=== PATIENT | female | born 1985 | race Caucasian/White ===

== ENCOUNTER 2022-08-24 09:40 | Emergency (ER) | payer BC ==
[~2022-08-24] VITALS: Ht 160 cm; Wt 142.0 kg
[2022-08-24] VITALS (11 sets, daily range): BP systolic 105–146; BP diastolic 68–103
[~2022-08-24 09:40] MED LIST: NO
[2022-08-24] MEDS ORDERED: LEXAPRO5 MG PO (10:04)
[2022-08-24] MEDS ORDERED: K-TABS10 MEQ PO (10:06)
[2022-08-24 10:13] LABS: BASO% 0.3 % (0-3); EOS% 0.9 % (0-8); HEMATOCRIT 38.2 % (37.0-47.0); IMMATURE GRANULOCYTES 0.3 % (0.0-5.0); LYMPH% 14.4 % (15-41); MEAN CELL VOLUME 80.3 fL CALC (80.0-100.0); MEAN CORPUSCULAR HGB 25.2 pG CALC (26.0-32.0); MEAN CORPUSCULAR HGB CONC 31.4 g/dL CAL (32.0-36.0); MONO% 6.5 % (2-13); NEUT# 5.87 thou/uL (2.00-7.15); NEUT% 77.6 % (42-76); RED BLOOD COUNT 4.76 mill/uL (4.20-5.60); RED CELL DISTRI WIDTH 14.3 % (11.5-15.5)
[2022-08-24 10:21] LABS: ALBUMIN 4.7 g/dL (3.2-5.0); ALKALINE PHOSPHATASE 127 u/l (38-126); ANION GAP 13 (6-22 (CALC)); BILIRUBIN, TOTAL 0.4 mg/dL (0.02-1.3); BUN 9 mg/dL (7-17); BUN/CREATININE RATIO 19 (12-20 (CALC)); CARBON DIOXIDE 24 mmol/l (22-30); CHLORIDE 103 mmol/l (95-108); CREATININE 0.5 mg/dL (0.5-1.0); GFR FOR AFR.AMER. > 60 ML/MIN (>=60 (CALC)); GFR OTHER RACES > 60 ML/MIN (>=60 (CALC)); POTASSIUM 3.4 mmol/l (3.5-5.1); SGOT/AST 31 u/l (14-36); SODIUM 136 mmol/l (137-146)
[2022-08-24] MEDS ORDERED: METOPROL TAR25 M1 PO (14:08)
== END 2022-08-24 15:04 | disposition home or self-care (01) | DRG 310 ==
LOC: ED 09:40
PROVIDERS: Family Medicine
DX: I48.92 Unspecified atrial flutter (principal)
CPT/HCPCS: J2060

== ENCOUNTER 2024-04-13 01:37 | Emergency (ER) | payer BC ==
[~2024-04-13] VITALS: Ht 160 cm; Wt 74.8 kg
[~2024-04-13 01:37] MED LIST changes: +K-TABS10 MEQ PO; +LEXAPRO5 MG PO; +METOPROL TAR25 M1 PO
[2024-04-13 01:43] VITALS: BP 137/92
[2024-04-13 01:45] VITALS: BP 138/84
[2024-04-13 02:07] VITALS: BP 117/85
[2024-04-13] MEDS ORDERED: SODIUM CHLORIDE 0.9% 1,000 ML IV ONE (02:50)
[2024-04-13] MEDS ORDERED: ONDANSETRON HCl 4 MG/2 ML SDV IV ONE (02:50)
[2024-04-13 02:59] LABS: BASO% 0.3 % (0-3); EOS% 1.2 % (0-8); HEMATOCRIT 41.5 % (37.0-47.0); HEMOGLOBIN 13.1 g/dl (12.0-16.0); IMMATURE GRANULOCYTES 0.6 % (0.0-5.0); LYMPH% 16.6 % (15-41); MEAN CORPUSCULAR HGB 27.1 pG CALC (26.0-32.0); MEAN CORPUSCULAR HGB CONC 31.6 g/dL CAL (32.0-36.0); MONO% 6.1 % (2-13); NEUT# 7.45 thou/uL (2.00-7.15); NEUT% 75.2 % (42-76); RED BLOOD COUNT 4.84 mill/uL (4.20-5.60); RED CELL DISTRI WIDTH 13.7 % (11.5-15.5); URINE BILIRUBIN - DIPSTICK Negative (NEGATIVE); URINE BLOOD DIPSTICK Negative (NEGATIVE); URINE GLUCOSE - DIPSTICK Negative (NEGATIVE); URINE KETONE Negative (NEGATIVE); URINE LEUK ESTERASE Trace (NEGATIVE); URINE NITRITE - DIPSTICK Negative (Negative); URINE PH 6.5 (4.5-8.0); URINE PROTEIN - DIPSTICK Negative (NEG-TRACE); URINE UROBILINOGEN - DIPSTICK 0.2 E.U./dL (0.2)
[2024-04-13 03:00] VITALS: BP 113/75
[2024-04-13 03:00] LABS: MEAN CELL VOLUME 85.7 fL CALC (80.0-100.0); URINE COLOR Yellow
[2024-04-13 03:03] LABS: ALBUMIN 4.7 g/dL (3.2-5.0); BILIRUBIN, TOTAL 0.4 mg/dL (0.02-1.3); CREATININE 0.6 mg/dL (0.5-1.0); TOTAL PROTEIN 7.8 g/dL (6.3-8.2)
[2024-04-13 03:04] LABS: POTASSIUM 4.1 mmol/l (3.5-5.1)
[2024-04-13] MEDS ORDERED: MACROBID100 M1 PO (04:49)
[2024-04-13] MEDS ORDERED: ZOFRAN4 MG/TAB PO (04:49)
[2024-04-13 05:32] VITALS: BP 123/79
[2024-04-13 05:34] VITALS: BP 123/79
== END 2024-04-13 05:34 | disposition home or self-care (01) | DRG 694 ==
LOC: ED 01:37
PROVIDERS: Family Medicine
DX: N20.0 Calculus of kidney (principal); Z84.89 Family history of other specified conditions
CPT/HCPCS: J0696; J2405